=== PATIENT | male | born 1970 | race Caucasian/White ===

== ENCOUNTER 2016-08-10 03:39 | Emergency (ER) | payer MEDICAID ==
[~2016-08-10] VITALS: Ht 172.7 cm; Wt 78.0 kg
[2016-08-10 04:21] VITALS: Ht 172.7 cm; Wt 78.0 kg
[2016-08-10] MEDS ORDERED: PENICILLIN G BENZ 2.4 MIL UNIT SYG IM ONE (05:00)
[2016-08-10] MEDS ORDERED: CLIN-73 PO (05:10)
--- NOTE | 2016-08-10 05:10 | ERD ---
ER Documentation Chief Complaint Date/Time DATE: 08/10/16 Chief Complaint Syphilis, Skin infection HPI The patient is a 46-year-old male who presents to the Emergency Department with complaint of redness, warmth, tenderness surrounding a skin lesions to the right elbow. The patient notes that three days ago he noticed a small pimple to the right elbow, which he thought was an ingrown hair, and therefore he popped the pimple. By the next morning, he noticed redness, swelling, tenderness and warmth surrounding that area, that has continued to spread. He reports pain upon palpation of the area, which he rates as 6/10. He noted very minimal pain at rest. He denies any fevers, chills, nausea or vomiting. Denies red streaking. Denies any similar lesions to other areas of his body. Additionally, the patient notes that 4-5 months ago he was tested at the methadone clinic, and was told that he tested positive for syphilis. He was advised at the time to obtain treatment, but because he is afraid of needles, he refused to do so. He notes that he has not been sexually active for three years. He denies dysuria, hematuria, flank pain. Denies urethral pain or discharge. Denies testicular pain or swelling. Denies any skin rashes. Denies headache, dizziness, change in mentation. The patient states that he is now ready to be treated. ROS All systems reviewed and are negative except as per history of present illness. Medications Home Meds Active Scripts Clindamycin Hcl* (Clindamycin Hcl*) 300 Mg Capsule, 300 MG PO QID for 10 Days, CAP Prov:CAIN FLOOD PA-C 08/10/16 Allergies Allergies: Coded Allergies: No Known Allergy (Unverified , 08/10/16) PMhx/Soc Medical and Surgical Hx: pt denies Medical Hx History of Surgery: Yes (neck surgery almost 40 years ago) Anesthesia Reaction: No Hx Neurological Disorder: No Hx Respiratory Disorders: No Hx Cardiac Disorders: No Hx Psychiatric Problems: No Hx Miscellaneous Medical Probl: No Hx Alcohol Use: No Hx Substance Use: No Hx Tobacco Use: Yes Smoking Status: Current every day smoker Physical Exam Vitals Vital Signs Date Time Temp Pulse Resp B/P Pulse Ox O2 Delivery O2 Flow Rate FiO2 08/10/16 04:21 98.4 98 20 143/65 98 08/10/16 04:15 98.4 78 20 132/65 98 08/10/16 03:54 98.8 95 20 133/85 98 Physical Exam GENERAL: Well-developed, well-nourished, in no acute distress. HENT: Head is normocephalic, atraumatic. Moist mucous membranes.Clear oropharynx. No pharyngeal erythema or exudates. No lip or tongue swelling. Uvula is midline. EYES: EOMI; PERRL. No scleral pallor or icterus. Conjunctiva pink. NECK: Supple. Full range of motion. RESPIRATORY: Clear to auscultation bilaterally. No rales, rhonchi or wheezing. Symmetric expansion. CARDIOVASCULAR: Regular rate and rhythm. S1 and S2 normal. GASTROINTESTINAL: Abdomen is soft, non-tender. Non-distended. Positive bowel sounds. EXTREMITIES: No clubbing or cyanosis. Moving all extremities. Distal pulses are palpable, 2+ bilaterally. Capillary refill is less than 2 seconds. NEUROLOGIC: The patient is alert, awake, and oriented x 3. Speech is normal. PSYCHIATRIC: Appropriate; Cooperative. INTEGUMENT: Small 2mm pustule to the right elbow, with surrounding erythema 6.5 cm x 5 cm, warmth and tenderness. No lymphatic streaking. No fluctuance. No drainage. No bleeding. Results 24 hrs Current Medications Medications (Trade) Dose Ordered Sig/Parker Route PRN Reason Start Time Stop Time Status Last Admin Dose Admin Penicillin G Benzathine (Bicillin La) 2,400,000 units ONCE ONCE IM 08/10/16 05:00 08/10/16 05:01 DC 08/10/16 05:05 Procedures/MDM This is a 46-year-old male presenting to the emergency department with complaint of spreading erythema surrounding an ingrown hair. The patient had a small pustule with surrounding spreading erythema on his right elbow that is warm to touch and tender to palpation on physical examination. However, the patient's oropharynx and airway was patent, and exhibited no breathing difficulties, wheezing, tongue swelling or lip swelling. His vital signs were stable, and he was afebrile, with no recent history of fevers or chills. The differential diagnosis includes, but is not limited to, allergic reaction, insect bite, fungal infection, cellulitis, MRSA, impetigo, shingles, herpes simplex virus, burn, abscess, dermatitis, viral syndrome, candidiasis, medication reaction, Torres Vipul syndrome, epidermolysis bullosa, toxic epidermal necrolysis, meningococcemia. After rest, the patient has no new complaints, and the patient remains stable with appropriate vital signs and no signs of respiratory distress. Upon my review and interpretation of the patient's presentation and overall ER course, I believe the patient's symptoms are most consistent with cellulitis. Additionally, the patient notes that 4-5 months ago he was tested positive for syphilis. He was last sexually active 3 years ago, and therefore patient's syphilis is likely latent. He was given an injection of 2.4 million units of Penicillin G Benzathine IM in the ED today, and advised that he must receive two more injections, once next week, and one in two weeks, to complete the full treatment. At this time the patient is in stable condition and therefore can be discharged home with prescription for Clindamycin, and strict return precautions for signs of deteriorating or worsening condition. His region of cellulitis was outlined and dated for further evaluation. The patient is strongly advised to follow up with his primary care provider within 1-2 days for re-evaluation and further management, or return to the ER sooner for worsening symptoms. Additionally, he is advised to return sooner if she notices the erythema spreading beyond the marked borders. I shared my medical decision making and plan with the patient at length and in great detail, and he verbally understands and agrees with the plan for further observation and care as an outpatient. At the time of discharge all questions were answered. Departure Diagnosis: Primary Impression: Cellulitis of right elbow Additional Impression: Latent syphilis in male Condition: Stable Patient Instructions: Cellulitis, Syphilis Additional Instructions: Follow up in 1-2 days for cellulitis check, reevaluation and further management. Return to the ED sooner for any new or worsening symptoms, or if you notice the redness spreading beyond the currently marked borders. You have latent syphilis. Because of this, you are required to receive 3 separate injections of Penicillin G Benzathine 2.4 millions units every week for three weeks. You were given your first injection here today. Please return here or to your clinic next week and the week after for the remaining two injections. Additionally, you must follow up with your clinic to confirm full testing of all other sexually transmitted infections, including gonorrhea, chlamydia, HIV, etc. CAIN FLOOD PA-C Aug 10, 2016 05:10
== END 2016-08-10 05:38 | disposition home or self-care (01) ==
LOC: FTE 03:39
DX: L03.113 Cellulitis of right upper limb (principal); A53.0 Latent syphilis, unspecified as early or late; F17.210 Nicotine dependence, cigarettes, uncomplicated
CPT/HCPCS: 96372; J0561; Z7502

== ENCOUNTER 2017-02-17 19:39 | Emergency (ER) | payer MEDICAID ==
[~2017-02-17] VITALS: Ht 182.9 cm; Wt 92.0 kg
[~2017-02-17 19:39] MED LIST: CLIN-73 PO
[2017-02-17 19:56] VITALS: Ht 182.9 cm; Wt 92.0 kg
[2017-02-17] MEDS ORDERED: PENICILLIN G BENZ 2.4 MIL UNIT SYG IM ONE (20:30)
--- NOTE | 2017-02-17 20:39 | ERD ---
ER Documentation Chief Complaint Date/Time DATE: 02/17/17 TIME: 20:37 Chief Complaint " I am here to receive a siphilis shot" HPI Patient is a 46-year-old male who states he has had syphilis for 3.5 years and is requesting a penicillin shot. He however states he does not have any penile discharge or rash or lesion. He denies any dysuria hematuria or urinary frequency. Denies any recent unprotected sex. Denies any fever. States he has no complaints. ROS All systems reviewed and are negative except as per history of present illness. Medications Home Meds Active Scripts Clindamycin Hcl* (Clindamycin Hcl*) 300 Mg Capsule, 300 MG PO QID for 10 Days, CAP Prov:CAIN FLOOD PA-C 08/10/16 Allergies Allergies: Coded Allergies: No Known Allergy (Unverified , 02/17/17) PMhx/Soc History of Surgery: Yes (neck surgery almost 40 years ago) Anesthesia Reaction: No Hx Neurological Disorder: No Hx Respiratory Disorders: No Hx Cardiac Disorders: No Hx Psychiatric Problems: Yes (drug abuse) Hx Miscellaneous Medical Probl: Yes (Syphilis(diagnosed 2016)) Hx Alcohol Use: No Hx Substance Use: Yes Hx Tobacco Use: Yes Smoking Status: Current every day smoker FmHx Family History: No diabetes Physical Exam Vitals Vital Signs Date Time Temp Pulse Resp B/P Pulse Ox O2 Delivery O2 Flow Rate FiO2 02/17/17 19:56 98.7 97 18 119/65 98 Physical Exam General: well developed, well nourished, alert, nontoxic, no distress Head: normocephalic, atraumatic Neck: Supple, nontender, no lymphadenopathy, no midline tenderness Respiratory: Clear to auscaultation bilaterally, speaks in full sentences, no use of accesory muscles or labored breathing, no rales, ronchi, or wheezing Cardiovascular: RRR, No murmurs GI: soft, non tender, non distended, negative murphys sign, negative mcburneys point tenderness, no cva tenderness bilaterally, no rebound or guarding : Deferred Results 24 hrs Current Medications Medications (Trade) Dose Ordered Sig/Parker Route PRN Reason Start Time Stop Time Status Last Admin Dose Admin Penicillin G Benzathine (Bicillin La) 2,400,000 units ONCE ONCE IM 7/23/17 20:30 02/17/17 20:31 DC Procedures/MDM Patient is a 46-year-old male who states he has a history of syphilis and is requesting penicillin shot. He is well-appearing in no distress and states he has no symptoms and his vital signs are all normal. He declined examination and just want to get the shot which she was given. He was then discharged. Recommended this patient follow up with her primary care doctor within 48 hours or return to the emergency room for any worsening of symptoms. However this time I do believe there is suitable for outpatient management. I answered all their questions and they agreed with the plan and were discharged home. Departure Diagnosis: Primary Impression: Syphilis Condition: Stable MT JOVEL PA-C Feb 17, 2017 20:39
[2017-02-17] MEDS: PENICILLIN G BENZ 600000 UNIT SYG IM ONE ×2 (20:52→20:58)
== END 2017-02-17 21:09 | disposition home or self-care (01) ==
LOC: FTE 19:39
DX: A53.9 Syphilis, unspecified (principal); F17.210 Nicotine dependence, cigarettes, uncomplicated
CPT/HCPCS: 96372; J0561; Z7502

== ENCOUNTER 2017-02-24 23:02 | Emergency (ER) | payer MEDICAID ==
[~2017-02-24] VITALS: Ht 182.9 cm; Wt 93.2 kg
[2017-02-24 23:05] VITALS: Ht 182.9 cm; Wt 93.2 kg
--- NOTE | 2017-02-24 23:45 | ERD ---
ER Documentation Chief Complaint Date/Time DATE: 02/24/17 TIME: 23:43 Chief Complaint here for 2nd shot of series of 3 for syphillis HPI 46-year-old male presents here in emergency department for a second admin, patient was diagnosed with latent syphilis, first dose was given last week. Patient denies any new symptoms. Patient denies being sexually active at this time. Patient denies any other symptoms. ROS All systems reviewed and are negative except as per history of present illness. Medications Home Meds Active Scripts Clindamycin Hcl* (Clindamycin Hcl*) 300 Mg Capsule, 300 MG PO QID for 10 Days, CAP Prov:CAIN FLOOD PA-C 08/10/16 Allergies Allergies: Coded Allergies: No Known Allergy (Unverified , 02/17/17) PMhx/Soc History of Surgery: Yes (neck surgery almost 40 years ago) Anesthesia Reaction: No Hx Neurological Disorder: No Hx Respiratory Disorders: No Hx Cardiac Disorders: No Hx Psychiatric Problems: Yes (drug abuse) Hx Miscellaneous Medical Probl: Yes (Syphilis(diagnosed 2015)) Hx Alcohol Use: No Hx Substance Use: Yes (on methadone) Hx Tobacco Use: Yes Smoking Status: Current every day smoker FmHx Family History: No coronary disease, No diabetes, No other Physical Exam Vitals Vital Signs Date Time Temp Pulse Resp B/P Pulse Ox O2 Delivery O2 Flow Rate FiO2 02/24/17 23:05 98.7 89 20 117/64 97 Physical Exam GENERAL: The patient is well developed and appropriate for usual state of health, in no apparent distress. CHEST: Clear to auscultation bilaterally. There are no rales, wheezes or rhonchi. HEART: Regular rate and rhythm. No murmurs, clicks, rubs or gallops. No S3 or S4. ABDOMEN: Soft, nontender and nondistended. Good bowel sounds. No rebound or guarding. No gross peritonitis. No gross organomegaly or masses. No Jha sign or McBurney point tenderness. BACK: No midline or flank tenderness. EXTREMITIES: Equal pulses bilaterally. There is no peripheral clubbing, cyanosis or edema. No focal swelling or erythema. Full range of motion. Grossly neurovascularly intact. NEURO: Alert and oriented. Cranial nerves 2-12 intact. Motor strength in all 4 extremities with 5/5 strength. Sensation grossly intact. Normal speech and gait. SKIN: There is no apparent rash or petechia. The skin is warm and dry. HEMATOLOGIC AND LYMPHATIC: There is no evidence of excessive bruising or lymphedema. No gross cervical, axillary, or inguinal lymphadenopathy. Results 24 hrs Current Medications Medications (Trade) Dose Ordered Sig/Parker Route PRN Reason Start Time Stop Time Status Last Admin Dose Admin Penicillin G Benzathine (Bicillin La) 2,400,000 units ONCE ONCE IM 02/25/17 00:00 02/25/17 00:01 Bicillin LA 2.4 million units was given here in emergency department, tolerated medication well. Procedures/MDM Medical decision making: Patient has latent syphilis, second round of treatment was given here in emergency department, tolerated medication well. Patient is advised to be careful and have safe sex practices. Patient is advised to follow- up with primary care doctor in 2-3 days for reevaluation. Patient was advised to return to emergency department for any worsening symptoms. Disposition: Home. Stable. Departure Diagnosis: Primary Impression: Latent syphilis, unspecified Condition: Stable Patient Instructions: NORIS Clark NP Feb 24, 2017 23:45
[2017-02-25] MEDS ORDERED: PENICILLIN G BENZ 2.4 MIL UNIT SYG IM ONE
== END 2017-02-25 00:39 | disposition home or self-care (01) ==
LOC: FTE 23:02
DX: A53.0 Latent syphilis, unspecified as early or late (principal); F17.210 Nicotine dependence, cigarettes, uncomplicated
CPT/HCPCS: 96372; J0561

== ENCOUNTER 2017-10-11 02:28 | Emergency (ER) | END 2017-10-11 05:24 | disposition home or self-care (01) ==

== ENCOUNTER 2017-10-24 03:24 | Emergency (ER) | END 2017-10-24 08:55 | disposition home or self-care (01) ==

== ENCOUNTER 2017-10-30 23:53 | Emergency (ER) | END 2017-10-31 01:48 | disposition left against medical advice (07) ==

== ENCOUNTER 2018-05-14 19:41 | Emergency (ER) | END 2018-05-14 21:46 | disposition home or self-care (01) ==

== ENCOUNTER 2019-01-08 13:29 | Emergency (ER) | payer OTHER ==
[~2019-01-08] VITALS: Wt 90.6 kg
[~2019-01-08 13:29] MED LIST changes: -CLIN-73 PO; +CLIN300C10 PO; +HYDR-4011 PO; +IBUP-1542 PO; +IBUP800T48 PO; +MUPI22OI2 TOP
[2019-01-08 13:30] VITALS: BP 116/75; PULSE 86; RESP 18
--- NOTE | 2019-01-08 14:05 | ERD ---
ER Documentation Chief Complaint Chief Complaint R FLANK PAIN SINCE LAST NIGHT , TODAY HEMATURIA. NO PAIN NOW. NO N/V HPI Is a 48-year-old male who has right flank pain since last night. He did go to his primary care doctor and they checked a urine and told him he had some blood in his urine. However he states when he urinates his urine appears to be yellow in color. no dysuria or frequency. ROS All systems reviewed and are negative except as per history of present illness. Medications Home Meds Active Scripts Mupirocin* (Bactroban*) 2% -22 Gram Oint...g., 1 APPLIC TOP TID, #1 TUB SITE OF APPLICATION: Prov:JANIS POWER 05/14/18 Hydrocodone/Acetaminophen ([place] 5-325 Tablet) 1 Each Tablet, 1 TAB PO Q6H PRN for SEVERE PAIN LEVEL 7-10, #20 TAB Prov:NORIS PHILLIPS [employer]ER SERVICE TECHNICIAN 11/14/17 Ibuprofen* (Motrin*) 600 Mg Tab, 600 MG PO Q6H PRN for PAIN AND OR ELEVATED TEMP, #30 TAB Prov:NORIS PHILLIPS NP 11/14/17 Ibuprofen* (Motrin*) 800 Mg Tab, 800 MG PO Q6H PRN for PAIN AND OR ELEVATED TEMP, #30 TAB Prov:MARTÍN QUINN MD 10/24/17 Clindamycin Hcl* (Clindamycin Hcl*) 300 Mg Capsule, 300 MG PO TID for 7 Days, CAP Prov:MARTÍN QUINN MD 10/24/17 Ibuprofen* (Motrin*) 600 Mg Tab, 600 MG PO Q6H PRN for PAIN AND OR ELEVATED TEMP, #30 TAB Prov:NORIS PHILLIPS NP 10/11/17 Clindamycin Hcl* (Clindamycin Hcl*) 300 Mg Capsule, 300 MG PO QID for 10 Days, CAP Prov:CAIN FLOOD PA-C 08/10/16 Allergies Allergies: Coded Allergies: No Known Allergy (Unverified , 02/17/17) PMhx/Soc History of Surgery: No Anesthesia Reaction: No Hx Neurological Disorder: No Hx Respiratory Disorders: No Hx Cardiac Disorders: No Hx Psychiatric Problems: No Hx Miscellaneous Medical Probl: Yes (Syphilis) Hx Alcohol Use: No Hx Substance Use: Yes (heroin) Hx Tobacco Use: Yes FmHx Family History: No diabetes Physical Exam Vitals Vital Signs Date Temp Pulse Resp B/P (MAP) Pulse Ox O2 O2 Flow FiO2 Time Delivery Rate 01/08/19 98.8 86 18 116/75 98 13:30 (89) Physical Exam INITIAL VITAL SIGNS: Reviewed by me GENERAL: Awake, alert and oriented x 4, well appearing, nontoxic, speaking in full sentences. No acute distress HEAD: Atraumatic RESPIRATORY: Clear to auscultation bilaterally. Symmetric chest wall rise. No wheezing or rales. No accessory muscle use. CV: Regular rate and rhythm. No murmurs, rubs, or gallops. ABDOMEN: Soft, non-distended. Nontender. Negative Jordan. Negative McBurneys point tenderness. No CVA tenderness bilaterally. No guarding. No rebound. Results 24 hrs Laboratory Tests Test 01/08/19 14:06 Urine Color YELLOW Urine Clarity SLIGHTLY CLOUDY Urine pH 5.0 Urine Specific [place] 1.028 Urine Ketones TRACE mg/dL Urine Nitrite NEGATIVE mg/dL Urine Bilirubin NEGATIVE mg/dL Urine Urobilinogen NEGATIVE mg/dL Urine Leukocyte Esterase NEGATIVE Jaxon/ul Urine Microscopic RBC 1 /HPF Urine Microscopic WBC 1 /HPF Urine Mucus MODERATE /HPF Urine Hemoglobin NEGATIVE mg/dL Urine Glucose NEGATIVE mg/dL Urine Total Protein NEGATIVE mg/dl Procedures/MDM Patient has had hematuria. He is afebrile normal vital signs. No CVA tenderness. Well-appearing in no distress. Discussed the possibility of him having kidney stone. Urinalysis was ordered as well as renal ultrasound. Urinalysis was negative. Ultrasound showed small nonobstructing kidney stones. Patient counseled regarding my diagnostic impression and care plan. Prior to discharge all questions answered. Pt agrees with treatment plan and understands strict return precautions. Pt is instructed to follow up with primary care provider within 24-48 hours. Precautionary instructions provided including instructions to return to the ER if not improving or for any worsening or changing symptoms or concerns. Departure Diagnosis: Primary Impression: Nephrolithiasis Condition: Stable MT JOVEL PA-C Jan 08, 2019 14:05
== END 2019-01-08 14:58 | disposition home or self-care (01) ==
LOC: FTE 13:29
DX: N20.0 Calculus of kidney (principal)
CPT/HCPCS: 76775; 81001; Z7502; 81003